=== PATIENT | female | born 1985 | race American Indian/Alaskan Native ===

== ENCOUNTER 2016-05-19 15:27 | Outpatient (CLI) | payer OTHER, MEDICAID ==
[2016-05-19 16:44] VITALS: BP 137/77
== END 2016-05-19 17:01 | disposition home or self-care (01) ==
LOC: TRG 15:27
PROVIDERS: ATTEND Obstetrics & Gynecology
DX: O47.1 False labor at or after 37 completed weeks of gestation (principal); Z3A.37 37 weeks gestation of pregnancy
CPT/HCPCS: 59025; 82962

== ENCOUNTER 2016-05-25 17:25 | Outpatient (CLI) | payer OTHER, MEDICAID ==
[2016-05-25 19:44] LABS: Hematocrit 31.2 % (30.3-42.9); Hemoglobin 9.7 gm/dl (10.1-14.3); Mean Corpuscular HGB Conc 31 % (30-34); Platelet Count 265 K/mm3 (140-440); Red Blood Count 4.57 M/mm3 (3.65-5.03); Red Cell Distribution Width 16.3 % (13.2-15.2); White Blood Count 7.1 K/mm3 (4.5-11.0)
[2016-05-25 19:57] LABS: Mean Corpuscular Hemoglobin 21 pg (28-32); Mean Corpuscular Volume 68 fl (79-97)
[2016-05-25 19:58] VITALS: BP 138/72
[2016-05-25 20:08] LABS: Alanine Aminotransferase 12 units/L (7-56)
[2016-05-25 20:16] LABS: Bilirubin,Urine NEG (Negative); Blood,Urine NEG (Negative); Ketones,Urine NEG (Negative); Leukocyte Esterase,Urine SM (Negative); Mucus,Urine FEW /HPF; Nitrite,Urine NEG (Negative); Protein,Urine <15 mg/dL mg/dL (Negative); Urobilinogen,Urine < 2.0 mg/dL (<2.0)
[2016-05-25 20:41] LABS: Lactate Dehydrogenase 197 units/L (91-180); Uric Acid 4.6 mg/dL (3.5-7.6)
[2016-05-25] MEDS ORDERED: PERCOCET 5/325 PO ONE (20:51)
== END 2016-05-25 20:59 | disposition home or self-care (01) ==
LOC: TRG 17:25
PROVIDERS: ATTEND Obstetrics & Gynecology
DX: O47.1 False labor at or after 37 completed weeks of gestation (principal); Z3A.37 37 weeks gestation of pregnancy
CPT/HCPCS: 36415; 81001; 82565; 83615; 84450; 84460; 84550; 85027

== ENCOUNTER 2016-05-26 09:37 | Inpatient (IN) | payer MEDICAID ==
--- NOTE | 2016-05-25 21:29 | History and Physical Report ---
History of Present Illness Date of examination: 05/26/16 History of present illness: Patient admitted for repeat section.Patient informed the risks of the surgery include bleeding possibly bleeding heavy enough to require blood transfusion, infection possible damage to bowel bladder ureter. Patient's questions answered. Patient understands and desires to proceed. Patient also desires permanent sterilization Menstrual History Regularity: irregular Menses every: 45-60 days Duration: 7 LMP: 09/03/2015 LMP reliability: month known LMP character: normal test type: urine test Date: 11/04/2015 BC at conception: none Planned ? yes EDC Calculations LMP: 06/09/2016 Past History : 4 Term Births: 2 Premature Births: 1 Living Children: 2 Para: 3 Mult. Births: 0 Prev : 1 Prev. attempt? 0 Aborta: 0 Elect. Ab: 0 Spont. Ab: 0 Ectopics: 0 # 1 Delivery date: 2007 Weeks Gestation: FT labor: no Delivery type: Anesthesia type: none [place] [facility] [place] [facility] [place]: Male weight: 6-9 Comments: denies # 2 Delivery date: 2009 Weeks Gestation: FT labor: no Delivery type: Anesthesia type: none [place] [facility] [place] Sex: Male weight: 7-5 Comments: denies # 3 Delivery date: 08/27/2010 Weeks Gestation: 24+3 Delivery type: Anesthesia type: spinal Comments: / , pre-eclampsia/eclampsia(severe), multiple anomalies Past Medical History: Negative Past Medical History Past Surgical History: Tonsillectomy Past Medical History Abnormal PAP: negative LIZET[place] Exposure: negative Infertility: negative Uterine Anomaly: negative Uterine Surgery (not C/S): negative Other Gynecologic Problems: negative Social Hx: Patient is Infection History Hx of STD: none Varicella/Chicken Pox Status: Previous Disease Genetic History Congenital Heart Defect: Mom: no Dad: no Anitra Disease: Mom: no Dad: no Thalassemia Mom: no Dad: no Neural Tube Defect Mom: no Dad: no Down's Syndrome Mom: no Dad: no Juaquin-Sachs Mom: no Dad: no Sickle Cell Disease/Trait Mom: no Dad: no Hemophilia Mom: no Dad: no Muscular Dystrophy Mom: no Dad: no Cystic Fibrosis Mom: no Dad: no [place] Chorea Mom: no Dad: no Mental Retardation Mom: no Dad: no Fragile X Mom: no Dad: no Other Genetic/Chromosomal Disorder Mom: no Dad: no Child w/other defect Mom: no Dad: no Enviromental Exposures Xray Exposure: no Medication, drug, or alcohol use since LMP: no Chemical/Other Exposure: no Exposure to Cat Liter: no Hx of Parvovirus (Fifth Disease): no Occupational Exposure to Children: none Current Allergies (reviewed today): * Past History - Obstetrical History : 4 Para: 3 Hx # Term Pregnancies: 2 Number of Pregnancies: 1 Spontaneous Abortions: 0 Induced : 0 Number of Living Children: 3 Medications and Allergies Allergies Allergy/AdvReac Type Severity Reaction Status Date / Time No Known Allergies Allergy Verified 02/29/16 13:26 Home Medications Medication Instructions Recorded Confirmed Last Taken Type No Known Home Medications [No 01/13/16 01/13/16 Unknown History Reported Home Medications] - Physical Exam Breasts: Positive: deferred Cardiovascular: Regular rate Abdomen: Positive: normal appearance, soft, normal bowel sounds. Negative: distention, tenderness Genitourinary (Female): Positive: normal external genitalia Vagina: Positive: normal moisture Uterus: Positive: enlarged Results Result Diagrams: 05/26/16 10:30 All other labs normal. Assessment and Plan - Patient Problems (1) 38 weeks gestation of Current Visit: Yes Status: Acute (2) Gestational diabetes mellitus (GDM) Current Visit: Yes Status: Acute Qualifiers: Gestational diabetes mellitus control: oral hypoglycemic-controlled Trimester: third trimester Qualified Code(s): O24.415 - Gestational diabetes mellitus in , controlled by oral hypoglycemic drugs (3) Previous delivery, antepartum Current Visit: No Status: Acute Plan to address problem: Patient informed the risks of the surgery include bleeding possibly bleeding heavy enough to require blood transfusion, infection possible damage to bowel bladder ureter. All questions answered. Patient agrees to proceed (4) Gestational hypertension w/o significant proteinuria in 3rd trimester Current Visit: Yes Status: Acute (5) Encounter for sterilization Current Visit: Yes Status: Acute Plan to address problem: Patient desires permanent sterilization. She declined temporary contraceptives. She understands the risks of the surgery include bleeding infection possible damage to bowel bladder or ureters. She understands that this surgery would make her permanently sterile. She also understands the approximate 1% failure rate. The patient understands all the above and desires to proceed.
[~2016-05-26 09:37] MED LIST: PEPCID IV ONE; PITOCin/NS 20 UNIT/1000ML DRIP 20 UNITS/1,000 ML BAG IV SCH; REGLAN IV ONE
[2016-05-26] MEDS ORDERED: BICITRA PO ONE (10:00)
[2016-05-26 10:43] LABS: Basophils % (Auto) 0.9 % (0.0-1.8); Eosinophils % (Auto) 0.8 % (0.0-4.3); Hematocrit 32.9 % (30.3-42.9); Mean Corpuscular HGB Conc 30 % (30-34); Red Blood Count 4.75 M/mm3 (3.65-5.03); Red Cell Distribution Width 16.8 % (13.2-15.2); White Blood Count 7.3 K/mm3 (4.5-11.0)
[2016-05-26] MEDS: LACTATED RINGERS 1,000 ML IV SCH ×2 (10:45→11:14)
[2016-05-26 10:46] LABS: Mean Corpuscular Hemoglobin 21 pg (28-32); Mean Corpuscular Volume 69 fl (79-97); Platelet Count 299 K/mm3 (140-440)
[2016-05-26] MEDS ORDERED: ANCEF/STERILE WATER 2 GM/20 ML 2 GM/20 ML SYRINGE IV NR (11:00)
[2016-05-26] MEDS ORDERED: DILAUDID IV PRN (11:05)
--- NOTE | 2016-05-26 11:05 | Anesthesia Consultation ---
Anesthesia Consult and Med Hx Date of service: 05/26/16 - Airway Anesthetic Teeth Evaluation: Good ROM Head & Neck: Adequate Mental/Hyoid Distance: Adequate Mallampati Class: Class II Intubation Access Assessment: Probably Good - Pre-Operative Health Status ASA Pre-Surgery Classification: ASA2 Proposed Anesthetic Plan: Epidural, Spinal - Pulmonary Hx Smoking: Yes (1 p/d x 7 years, quit 2015) Hx Asthma: Yes (no recent flares) COPD: No - Cardiovascular System Hx Hypertension: No (pre-eclampsia) - Central Nervous System Hx Seizures: No Hx Psychiatric Problems: No - Endocrine Hx Renal Disease: No Hx End Stage Renal Disease: No Hx Non-Insulin Dependent Diabetes: Yes (gestational diabetes) Hx Hypothyroidism: No Hx Hyperthyroidism: No - Hematic Hx Anemia: No Hx Sickle Cell Disease: No - Other Systems Hx Alcohol Use: No - Additional Comments Anesthesia Medical History Comments: h/o severe pre-eclampsia with previous 2011 with baby passing away 1 day after
--- NOTE | 2016-05-26 11:05 | Anesthesia Day of Surgery ---
Anesthesia Day of Surgery - Day of Surgery Patient Examined: Yes Patient H&P Reviewed: Yes Patient is NPO: Yes
[2016-05-26] MEDS ORDERED: REGLAN ONE (11:12)
[2016-05-26] MEDS ORDERED: WATER FOR IRRIG STERILE IR ONE (11:30)
[2016-05-26] MEDS ORDERED: NACL 0.9% IR ONE (11:30)
[2016-05-26] MEDS ORDERED: ePHEDrine SULFATE ONE (11:46)
[2016-05-26] MEDS ORDERED: NARCAN 0.4 MG/1 ML IV PRN ×2 (12:00→15:15)
[2016-05-26] MEDS ORDERED: TORADOL IV PRN (12:00)
[2016-05-26] MEDS ORDERED: SODIUM CHLORIDE FLUSH SYRINGE 10 ML IV PRN (12:00)
[2016-05-26] MEDS ORDERED: BENADRYL IV PRN (12:00)
[2016-05-26] MEDS ORDERED: MORPHINE IV PRN ×2 (12:00)
[2016-05-26] MEDS ORDERED: ZOFRAN IV PRN ×2 (12:00→15:15)
[2016-05-26] MEDS ORDERED: NACL 0.9% 1000 ML 1,000 ML ONE (12:05)
[2016-05-26] MEDS ORDERED: ZOFRAN ONE (12:32)
--- NOTE | 2016-05-26 13:13 | Operative Report ---
Operative Report Operative Report: Date of procedure: 05/26/2016 Pre-operative diagnosis: Intrauterine at 37 weeks with gestational diabetes and gestational hypertension with previous section and desires permanent sterilization Post-operative diagnosis: Same Procedure name(s): Repeat low transverse section with bilateral tubal ligation modified [place] type Surgeon: Brian Inman MD Contact Lens Lathe Operator: Anesthesia: Spinal EBL: 800 mL Complications: Small mesial salpinx bleed on the left side Findings: Patient with adhesions between anterior normal wall and omentum and anterior uterus and bladder normal uterus with tubes and ovaries bilaterally. There was a small bleed after ligation of the left tube and the mesosalpinx Specimen(s): Portion of the right and left fallopian tubes Procedure: The patient was brought to the operating room. A spinal was placed without any complications. She was then placed in left lateral tilt. Prepped and draped in the usual sterile manner. After testing for adequate anesthesia level, a Pfannenstiel incision was made through her previous scar. This incision was taken down to the fascia. The fascia was then nicked in the midline. This incision was extended out laterally with Nicholson scissors. The fascia was then sharply and bluntly from the underlying rectus muscles. The rectus muscles were bluntly and sharply . The peritoneum was then entered with the dye house wheel operator's fingers. This incision was spread vertically with care not to damage the bladder below. The bladder flap was then formed sharply and bluntly with Metzenbaum scissors. The Gucci self- retaining tractor was then placed without any difficulty. A transverse incision was made in lower uterine segment. This incision was extended laterally with the operators fingers. The amniotic sac was then entered bluntly with the dye house wheel operator's fingers. The was delivered from the vertex position. Bulb suction on the mother's abdomen. Cord was double clamped and cut. The was then passed to the nursery personnel who were in attendance. The above scores were given by the nursery personnel. The placenta was then bluntly removed. The uterus was then externalized and wiped clean the remaining products. The uterine incision was closed in layers. The first incision was closed in a locking manner using 0 Vicryl. This was followed by imbricating stitch also with 0 Vicryl. Attention was then switched to the patient's fallopian tubes. Each fallopian tube was identified by its fimbriated end. A portion of each tube was grabbed with the [place] clamp approximately 2-3 cm from the cornua. Each loop was double ligated with 0 plain suture. The loop were cut with Metzenbaum scissors. Each stump was found to be hemostatic and cauterized with the Bovie. Attention was then switched back to the uterine closure. This closure was hemostatic. The bladder flap was copiously irrigated and found to be hemostatic. The pelvis was copiously irrigated and found to be hemostatic. As the uterus was being placed back to the patient's abdomen there is a small tear in the mesosalpinx and the left tube that was repaired with 3-0 Vicryl with good hemostasis. Uterus was then gently placed back to the pelvis. The tubal stumps were inspected and found to be hemostatic. The retractors were removed. The rectus muscles were inspected and found to be hemostatic. The fascia was then closed in a running manner using 0 Vicryl. This incision was hemostatic irrigation Bovie. The skin was reapproximated with 4-0 Vicryl subcuticularly. The patient tolerated procedure well. Her urine was clear. The infant was admitted to the well baby nursery. The patient was accompanied to recovery room in good condition. Instrument count correct 3.
[2016-05-26] MEDS ORDERED: PITOCin/NS 20 UNIT/1000ML DRIP 20 UNITS/1,000 ML BAG IV SCH (15:15)
[2016-05-26] MEDS ORDERED: TUCKS PAD TP PRN (15:15)
[2016-05-26] MEDS ORDERED: SODIUM CHLORIDE FLUSH SYRINGE 10 ML IV SCH (15:15)
[2016-05-26] MEDS ORDERED: MILK OF MAGNESIA PO PRN (15:15)
[2016-05-26] MEDS ORDERED: MYLICON PO PRN (15:15)
[2016-05-26] MEDS ORDERED: LANSINOH TP PRN (15:15)
[2016-05-26] MEDS ORDERED: D5LR 1,000 ML IV SCH (16:00)
[2016-05-26] MEDS ORDERED: TORADOL IV SCH (16:00)
[2016-05-26] MEDS: ANCEF/NS 1 GM/50 ML 1 GM/50 ML BAG IV SCH (18:20)
[2016-05-27 01:33] LABS: Hematocrit 29.1 % (30.3-42.9); Hemoglobin 9.1 gm/dl (10.1-14.3)
[2016-05-27] MEDS: ANCEF/NS 1 GM/50 ML 1 GM/50 ML BAG IV SCH (02:30)
[2016-05-27] MEDS: MOTRIN PO PRN ×3 (08:17→21:45)
[2016-05-27] MEDS: NORCO 5/325 PO PRN ×2 (08:18→13:48)
[2016-05-27] MEDS ORDERED: FEOSOL PO SCH (10:00)
--- NOTE | 2016-05-27 10:52 | Progress Note ---
Subjective Date of service: 05/27/16 Interval history: No anesthetic related complaints. Overnight pain control was good. Objective - Constitutional Vitals: Vital Signs - 12hr 05/27/16 05/27/16 05/27/16 00:00 04:50 08:12 Temperature 98.5 F 98.5 F 98.5 F Pulse Rate [ 100 H 90 90 Right Radial] Respiratory 18 20 20 Rate Blood Pressure 142/70 128/71 130/64 [Right Arm] 05/27/16 05/27/16 08:17 08:18 Temperature Pulse Rate [ Right Radial] Respiratory 20 20 Rate Blood Pressure [Right Arm] - Labs CBC & Chem 7: 05/27/16 01:18 Labs: Abnormal lab results 05/27/16 Range/Units 01:18 Hgb 9.1 L (10.1-14.3) gm/dl Hct 29.1 L (30.3-42.9) %
--- NOTE | 2016-05-27 11:36 | Progress Note ---
Assessment and Plan - Patient Problems (1) Delivered by section Current Visit: Yes Status: Acute Plan to address problem: -routine post op/pp care -meds for itching -anticipate d/c tomorrow if remains AFVSS (2) Gestational diabetes mellitus (GDM) Current Visit: Yes Status: Acute Qualifiers: Gestational diabetes mellitus control: oral hypoglycemic-controlled Trimester: third trimester Qualified Code(s): O24.415 - Gestational diabetes mellitus in , controlled by oral hypoglycemic drugs Plan to address problem: -repeat glucose tolerance testing at 6 wks pp (3) Gestational hypertension w/o significant proteinuria in 3rd trimester Current Visit: Yes Status: Acute Plan to address problem: -bps for the most part in normal range with some systolics in mildly elevated range. Will hold bp meds at this time and con't to monitor -plan of care d/w pt and questions were addressed and answered. Subjective - Subjective Date of service: 05/27/16 Principal diagnosis: POD #1 s/p repeat c/s with TL Interval history: Pt doing well but does c/o having itching from the medications being given. She otherwise states she is feeling well. Patient reports: appetite normal, voiding normally, pain well controlled [place]: doing well Objective - Vital Signs Latest vital signs: Vital Signs Temp Pulse Pulse Resp BP BP Pulse Ox 05/27/16 08:18 20 05/27/16 08:17 20 05/27/16 08:12 98.5 F 90 20 130/64 05/27/16 04:50 98.5 F 90 20 128/71 05/27/16 00:00 98.5 F 100 H 18 142/70 05/26/16 20:30 98.7 F 100 H 20 140/75 05/26/16 16:25 97.7 F 88 20 140/70 05/26/16 14:35 97.3 F L 108 H 16 151/75 05/26/16 14:20 97.5 F L 89 14 143/76 99 05/26/16 13:50 87 14 146/79 99 05/26/16 13:40 87 4 L 149/79 99 05/26/16 13:25 88 14 142/75 99 05/26/16 13:20 82 16 140/77 99 05/26/16 13:15 88 12 138/78 99 05/26/16 13:11 97.7 F 90 12 138/70 99 05/26/16 12:55 152 H Intake and Output 05/26/16 05/27/16 05/27/16 22:59 06:59 14:59 Intake Total 50 360 240 Output Total 1000 1600 Balance -950 -1240 240 Intake: IV 50 ANCEF/NS 1 GM/50 ML 1 gm 50 In 50 ml @ 100 mls/hr IV Q8H SHARLA Rx#:[id number] Oral 240 Intake, Free Water 360 Output: Urine 1000 1600 Indwelling Catheter 1000 1600 Other: Total, Intake Amount 240 Total, Output Amount 1000 1600 # Voids Void 1 1 - Exam Lungs: Present: Normal air movement Abdomen: Present: normal appearance, soft. Absent: distention, tenderness, guarding Uterus: Present: normal, firm, fundal height below umbilicus Deep Tendon Reflex Grade: Normal +2 Incision: Present: normal, dry, intact, dressed - Labs Labs: Abnormal lab results 05/27/16 Range/Units 01:18 Hgb 9.1 L (10.1-14.3) gm/dl Hct 29.1 L (30.3-42.9) %
[2016-05-27] MEDS ORDERED: BENADRYL IV PRN (11:37)
[2016-05-27] MEDS ORDERED: BENADRYL PO PRN (11:58)
[2016-05-27] MEDS ORDERED: FLUARIX QUAD 2016-2017(36 MOS+) IM ONE (12:00)
[2016-05-27] MEDS: PERCOCET 5/325 PO PRN (18:14)
[2016-05-28] MEDS: PERCOCET 5/325 PO PRN ×5 (00:10→22:10)
[2016-05-28] MEDS: MOTRIN PO PRN ×3 (06:39→20:40)
--- NOTE | 2016-05-28 10:38 | Progress Note ---
Assessment and Plan - Patient Problems (1) Delivered by section Current Visit: Yes Status: Acute Plan to address problem: -routine post op/pp care -anticipate d/c tomorrow if remains AFVSS (2) Gestational diabetes mellitus (GDM) Current Visit: Yes Status: Acute Qualifiers: Gestational diabetes mellitus control: oral hypoglycemic-controlled Trimester: third trimester Qualified Code(s): O24.415 - Gestational diabetes mellitus in , controlled by oral hypoglycemic drugs (3) Gestational hypertension w/o significant proteinuria in 3rd trimester Current Visit: Yes Status: Acute Plan to address problem: -bp is stable on no meds -con't to monitor at this time Subjective - Subjective Date of service: 05/28/16 Principal diagnosis: POD #2 s/p repeat c/s with TL Interval history: Pt doing well but request to stay inhouse one more day stating "i'm not ready to deal with everybody else yet." I advised she is still just POD #2 and can remain inhouse. Pt denies any depression or depressed thought but simply states she would like a little more time in the hospital. Patient reports: appetite normal, voiding normally, pain well controlled, flatus [place]: doing well, bottle feeding Objective - Vital Signs Latest vital signs: Vital Signs Temp Pulse Pulse Resp BP BP 05/28/16 08:03 98.3 F 80 18 138/60 05/28/16 00:00 98.6 F 78 20 146/73 05/27/16 18:14 20 05/27/16 16:39 99.1 F 90 20 144/70 05/27/16 13:50 20 05/27/16 13:48 20 05/27/16 12:03 98.8 F 86 20 154/50 Intake and Output 05/27/16 05/28/16 05/28/16 22:59 06:59 14:59 Intake Total 480 Balance 480 Intake: Oral 480 Other: Total, Intake Amount 240 # Voids Void 1 1 - Exam Breasts: Present: normal Cardiovascular: Present: Normal S1, Normal S2 Lungs: Present: Clear to auscultation, Normal air movement Abdomen: Present: normal appearance, soft, normal bowel sounds. Absent: distention, tenderness, guarding Uterus: Present: normal, firm, fundal height below umbilicus. Absent: bogginess , tenderness Extremities: Present: normal, edema (traceb/l). Absent: tenderness Deep Tendon Reflex Grade: Normal +2 Incision: Present: normal, dry, intact (open to air)
[2016-05-28] MEDS: NORCO 5/325 PO PRN (20:40)
[2016-05-29] MEDS: PERCOCET 5/325 PO PRN ×2 (04:00→08:30)
[2016-05-29] MEDS ORDERED: BOOSTRIX IM ONE (06:00)
--- NOTE | 2016-05-29 06:59 | Discharge Summary ---
Providers - Providers Date of Admission: 05/26/16 09:37 Date of discharge: 05/29/16 (pt agrees with d/c ) Attending physician: CHELSY ZAPATA 05/26/16 15:15 Consult to [facility] [CONS] Routine Reason For Exam: Primary care physician: ANDREZ RUFF Hospitalization Reason for admission: section Delivery: Procedure: repeat low transverse Episiotomy: none Laceration: none Incision: normal, dry, intact Other procedures: none complications: none Discharge diagnosis: IUP at term delivered [place] baby: male Hospital course: uncomplicated section Pt w/o complaint VSS FF below umb Lochia scant Incision D&I H&H 12/01 drop r/t blood loss from surgery Pt is asymptomatic. Doing well s/p section. P: d/c today with instruction RTO one week RX provided. Condition at discharge: Good Disposition: DISCHARGED TO HOME OR SELFCARE - Discharge Diagnoses (1) Delivered by section Status: Acute Comment: rto one week postop care Plan - Discharge Medications Prescriptions: Ferrous Sulfate [Feosol 325 MG tab] 325 mg PO BID #60 tablet Ibuprofen [Motrin 800 MG tab] 800 mg PO Q6H PRN #30 tablet PRN Reason: Pain Lidocain2.5%/Prilocai2.5% [Emla] 5 gm TP PRN #1 tube oxyCODONE /ACETAMINOPHEN [Percocet 5/325 mg] 1 - 2 tab PO Q4H PRN #30 tablet PRN Reason: Pain, Moderate - Provider Discharge Summary Activity: routine, no sex for 6 weeks, no heavy lifting 4 weeks, no strenuous exercise Diet: routine Instructions: routine Additional instructions: [] Smoking cessation referral if applicable(refer to patient education folder for contact #) [] Refer to [facility] Booklet Call your doctor immediately for: * Fever > 100.5 * Heavy vaginal bleeding ( >1 pad per hour) * Severe persistent headache * Shortness of breath * Reddened, hot, painful area to leg or breast * Drainage or odor from incision. * Keep incision clean and dry at all times and follow doctor's instructions regarding bathing/showering - Follow up plan Follow up: ANDREZ RUFF MD [Primary Care Provider] - 7 Days (Congratulations! Please call [phone] to schedule your postoperative visit one week and your son's circumcision in 1 week. Bring the EMLA cream with you to his visit. Do NOT apply at home. Please take medications as prescribed. Call with any concerns. )
[2016-05-29] MEDS: MOTRIN PO PRN (07:25)
[2016-05-29] MEDS ORDERED: FLUARIX QUAD 2016-2017(36 MOS+) IM ONE (12:00)
[2016-05-29 12:04] VITALS: BP 141/81
== END 2016-05-29 12:15 | disposition home or self-care (01) | DRG 765 ==
LOC: APU 09:37 → OB 14:53
PROVIDERS: ADMIT Obstetrics & Gynecology; ATTEND Obstetrics & Gynecology
PROC: 10D00Z1 Extraction of Products of Conception, Low, Open Approach (ICD-10-PCS; principal; 2016-05-26)
PROC: 0UL70ZZ Occlusion of Bilateral Fallopian Tubes, Open Approach (ICD-10-PCS; 2016-05-26)
DX: O24.425 Gestational diabetes mellitus in childbirth, controlled by oral hypoglycemic drugs (principal); O13.4 Gestational [pregnancy-induced] hypertension without significant proteinuria, complicating childbirth; O34.211 Maternal care for low transverse scar from previous cesarean delivery; O99.52 Diseases of the respiratory system complicating childbirth; J45.909 Unspecified asthma, uncomplicated; N85.8 Other specified noninflammatory disorders of uterus; Z3A.38 38 weeks gestation of pregnancy; Z37.0 Single live birth
CPT/HCPCS: 36415; 85014; 85018; 85025; 86850; 86900; 86901; 88302; 90471; 90686; 90715; G0008; J0690; J1885; J2270; J2405; J2590; J2765; J7030; J7120; J7121

== ENCOUNTER 2016-12-17 13:14 | Emergency (ER) | payer MEDICAID, OTHER ==
[2016-12-17 15:32] LABS: Basophils % (Auto) 0.3 % (0.0-1.8); Eosinophils % (Auto) 0.8 % (0.0-4.3); Hematocrit 31.6 % (30.3-42.9); Hemoglobin 9.7 gm/dl (10.1-14.3); Mean Corpuscular HGB Conc 31 % (30-34); Mean Corpuscular Volume 67 fl (79-97); Platelet Count 328 K/mm3 (140-440); Red Cell Distribution Width 18.1 % (13.2-15.2)
[2016-12-17 15:33] LABS: Mean Corpuscular Hemoglobin 21 pg (28-32)
--- NOTE | 2016-12-17 18:00 | Emergency Department Report ---
HPI - General Chief Complaint: Vaginal Bleeding Time Seen by Provider: 12/17/16 17:54 - HPI HPI: 31-year-old -[place] female presents to the ER with vaginal bleeding and the requiring mode and 5 pads daily. Patient states she has a history of menorrhagia and recently he has an IUD placed in for that issue. She had to get the IUD removed due to complications. She presents today with worsening of her bleeding but no other symptoms. She denies light headedness, syncope, chest pain, shortness of breath. She stated that she sees Dr. Reynolds OB/ [facility] [employer] called their office today with her complaints and they recommended that she comes to the ED for further evaluations. ED Past Medical Hx - Past Medical History Hx Hypertension: No (pre-eclampsia) Hx Congestive Heart Failure: No Hx Diabetes: No Hx Deep Vein Thrombosis: No Hx Renal Disease: No Hx Sickle Cell Disease: No Hx Seizures: No Hx Asthma: Yes (no recent flares) Hx COPD: No Hx HIV: No Additional medical history: molar x1, Vaginal delivery x 2 - Surgical History Additional Surgical History: - Social History Smoking Status: Never Smoker Substance Use Type: None - Medications Home Medications: Home Medications Medication Instructions Recorded Confirmed Last Taken Type Ferrous Sulfate [Feosol 325 MG tab] 325 mg PO BID #60 tablet 05/26/16 Unknown Rx Ibuprofen [Motrin 800 MG tab] 800 mg PO Q6H PRN #30 tablet 05/26/16 Unknown Rx oxyCODONE /ACETAMINOPHEN [Percocet 1 - 2 tab PO Q4H PRN #30 tablet 05/26/16 Unknown Rx 5/325 mg] Lidocain2.5%/Prilocai2.5% [Emla] 5 gm TP PRN #1 tube 05/29/16 Unknown Rx Ketorolac [Toradol] 10 mg PO Q6H PRN #14 tablet 12/17/16 Unknown Rx ED Review of Systems ROS: Stated complaint: VAGINAL BLEEDING WITH CLOTS Other details as noted in HPI Comment: All other systems reviewed and negative Respiratory: no symptoms reported Cardiovascular: as per HPI Genitourinary: other (vaginal bleeding) Physical Exam - Physical Exam Vital Signs: Vital Signs 12/17/16 12/17/16 14:51 17:44 Temperature 98 F Pulse Rate 82 101 H Respiratory 20 18 Rate Blood Pressure 130/74 Blood Pressure 159/103 [Left] O2 Sat by Pulse 100 100 Oximetry Physical Exam: Physical Exam: - General Limitations: No Limitations General appearance: alert, in no apparent distress. - Head Head exam: Present: atraumatic, normocephalic - Eye Eye exam: Present: normal appearance - ENT ENT exam: Present: mucous membranes moist - Neck Neck exam: Present: normal inspection - Respiratory Respiratory exam: Present: normal lung sounds bilaterally. Absent: respiratory distress - Cardiovascular Cardiovascular Exam: Present: normal rhythm, normal rate. Absent: systolic murmur, diastolic murmur, rubs, gallop - GI/Abdominal GI/Abdominal exam: Present: soft, normal bowel sounds : Dry blood in vaginal vault - Extremities Exam Extremities exam: Present: normal inspection - Back Exam Back exam: Present: normal inspection - Neurological Exam Neurological exam: Present: alert, oriented X3 - Psychiatric Psychiatric exam: normal affect and mood - Skin Skin exam: Present: warm, dry, intact, normal color. Absent: rash ED Course Vital Signs 12/17/16 12/17/16 14:51 17:44 Temperature 98 F Pulse Rate 82 101 H Respiratory 20 18 Rate Blood Pressure 130/74 Blood Pressure 159/103 [Left] O2 Sat by Pulse 100 100 Oximetry ED Medical Decision Making - Lab Data Result diagrams: 12/17/16 15:07 Critical care attestation.: If time is entered above; I have spent that time in minutes in the direct care of this critically ill patient, excluding procedure time. ED Disposition Clinical Impression: Abnormal vaginal bleeding Disposition: DC-01 TO HOME OR SELFCARE Is pt being admited?: No Does the pt Need Aspirin: No Condition: Stable Instructions: Dysfunctional Uterine Bleeding (ED) Prescriptions: Ketorolac [Toradol] 10 mg PO Q6H PRN #14 tablet PRN Reason: Pain Referrals: PRIMARY CARE,MD [Primary Care Provider] - 3-5 Days
[2016-12-17 18:20] VITALS: BP 144/80
[2016-12-17 18:23] LABS: Bilirubin,Urine NEG (Negative); Blood,Urine LG (Negative); Ketones,Urine NEG (Negative); Leukocyte Esterase,Urine NEG (Negative); Mucus,Urine 1+ /HPF; Nitrite,Urine NEG (Negative); Protein,Urine <15 mg/dL mg/dL (Negative); Urobilinogen,Urine < 2.0 mg/dL (<2.0)
[2016-12-17] MEDS ORDERED: NORCO 5/325 PO ONE (18:42)
== END 2016-12-17 18:54 | disposition home or self-care (01) ==
LOC: ED 13:14
DX: N93.9 Abnormal uterine and vaginal bleeding, unspecified (principal); J45.909 Unspecified asthma, uncomplicated; Z98.890 Other specified postprocedural states
CPT/HCPCS: 36415; 81001; 84702; 85025; 86850; 86900; 86901; 99284